=== PATIENT | female | born 1985 | race Caucasian/White ===

== ENCOUNTER 2021-03-27 11:52 | Emergency (ER) | payer MEDICAID ==
[~2021-03-27] VITALS: Ht 162.6 cm; Wt 113.0 kg
[2021-03-27] MEDS ORDERED: DIPHTH,PERTUSS(ACELL),TET TOX 0.5 ML DISP.SYRIN. VAX IM ONE (12:30)
[2021-03-27] MEDS ORDERED: HYDROcodone/APAP 5/325MG 1 TAB TABLET PO ONE (12:30)
--- NOTE | 2021-03-27 12:38 | RAD ---
EXAM: Left foot, 3 views. HISTORY: Fall. Laceration. COMPARISON: None. FINDINGS: 3 views of the left foot are obtained. There is lucency involving the base of the second mi ddle phalanx, possibly projectional or due to a nondisplaced fracture. There is no foreign body. Ther e is a small plantar spur. IMPRESSION: Lucency involving the base of the second middle phalanx, possibly artifactual or a nondis placed fracture. Correlate for pain in this location. Electronically signed by: Jocelin Nava MD (03/27/2021 12:36 PM) [id number]
[2021-03-27] MEDS ORDERED: CEPH500T PO (12:58)
[2021-03-27] MEDS ORDERED: HYDR-2155 PO (12:58)
--- NOTE | 2021-03-27 13:01 | PHYS DOC ---
General Adult EDM: Chief Complaint: FOOT INJURY PAIN HPI: HPI: Patient is a 36-year-old female presents with laceration to left toe. Patient states that she tripped and fell down her stairs. Denies hitting her head or loss of consciousness. Denies any other injuries. Patient ambulated on her own into the emergency room. Denies taking anything for pain prior to arrival. Pain is increased with ambulation. Bleeding is controlled. Unknown tetanus status. Review of Systems: Review of Systems: Constitutional: Denies fever or chills Eyes: Denies change in visual acuity HENT: Denies nasal congestion or sore throat Respiratory: Denies cough or shortness of breath Cardiovascular: Denies chest pain or edema GI: Denies abdominal pain, nausea, vomiting, bloody stools or diarrhea : Denies dysuria Musculoskeletal: Denies back pain or joint pain Integument: Laceration to left toe Neurologic: Denies headache, focal weakness or sensory changes Endocrine: Denies polyuria or polydipsia Lymphatic: Denies swollen glands Psychiatric: Denies depression or anxiety Current Medications: Current Meds: Current Medications Medications (Trade) Dose Ordered Sig/Delgado Start Time Stop Time Status Last Admin Dose Admin Acetaminophen/ Hydrocodone Bitart (Lortab 5/325) 1 tab 1X ONCE 03/27/21 12:30 03/27/21 12:31 DC Diphtheria/ Tetanus/Acell Pertussis (Boostrix) 0.5 ml ONCE ONCE 03/27/21 12:30 03/27/21 12:31 DC Allergies: Allergies: Allergies Coded Allergies Type Severity Reaction Last Updated Verified No Known Drug Allergies 03/27/21 No Physical Exam: PE: Constitutional: Well developed, well nourished, no acute distress, non-toxic appearance. [] HENT: Normocephalic, atraumatic, bilateral external ears normal, oropharynx moist, no oral exudates, nose normal. [] Eyes: PERRLA, EOMI, conjunctiva normal, no discharge. [] Neck: Normal range of motion, no tenderness, supple, no stridor. [] Cardiovascular:Heart rate regular rhythm, no murmur [] Lungs & Thorax: Bilateral breath sounds clear to auscultation [] Abdomen: Bowel sounds normal, soft, no tenderness, no masses, no pulsatile ma sses. [] Skin: 1 inch, laceration to base of the second middle phalanx Back: No tenderness, no CVA tenderness. [] Extremities: No tenderness, no cyanosis, no clubbing, ROM intact, no edema. [] Neurologic: Alert and oriented X 3, normal motor function, normal sensory function, no focal deficits noted. [] Psychologic: Affect normal, judgement normal, mood normal. [] EKG: EKG: [] Radiology/Procedures: Radiology/Procedures: []EXAM: Left foot, 3 views. HISTORY: Fall. Laceration. COMPARISON: None. FINDINGS: 3 views of the left foot are obtained. There is lucency involving the base of the second middle phalanx, possibly projectional or due to a nondisplaced fracture. There is no foreign body. There is a small plantar spur. IMPRESSION: Lucency involving the base of the second middle phalanx, possibly artifactual or a nondisplaced fracture. Correlate for pain in this location. Electronically signed by: Jocelin Nava MD (03/27/2021 12:36 PM) [id number] Heart Score: C/O Chest Pain: No Risk Factors: Risk Factors: DM, Current or recent (<one month) smoker, HTN, HLP, family history of CAD, obesity. Risk Scores: Score 0 - 3: 2.5% MACE over next 6 weeks - Discharge Home Score 4 - 6: 20.3% MACE over next 6 weeks - Admit for Clinical Observation Score 7 - 10: 72.7% MACE over next 6 weeks - Early Invasive Strategies Course & Med Decision Making: Course & Med Decision Making Pertinent Labs and Imaging studies reviewed. (See chart for details) [] 36-year-old female presents after a fall. Patient has laceration to base of the second middle phalanx. Pain treated with hydrocodone in the ER. X-ray of left foot shows nondisplaced phalanx fracture. Wound was irrigated. Laceration was repaired. Toes wrapped in gauze. Patient given postop shoe. Toes were cj taped. Tetanus updated. Patient sent home with Keflex and hydrocodone. Advised patient she could still take ibuprofen for breakthrough pain. Patient needs to follow-up with PCP or return to the ER for suture removal in 10 to 14 days. Discussed signs of infection. Patient verbalized understanding of discharge instructions. Dragon Disclaimer: Kevon Disclaimer: This electronic medical record was generated, in whole or in part, using a voice recognition dictation system. Laceration Repair Lac Repair Indication: Laceration to base of the second middle phalanx and third phalanx Procedure: The patient was placed in the appropriate position and anesthesia around the block was injected.. The area was then irrigated. The laceration was closed with 5-0, 4 sutures. 2 sutures placed to the third phalanx. The wound area was then dressed with gauze. Total repaired wound length: Second middle phalanx1 cm, third phalanxhalf centimeter Other Items: N/A The patient tolerated the procedure well. Complications: N/A Departure Departure: Impression: Primary Impression: Laceration of toe Qualified Codes: S91.119A - Laceration without foreign body of unspecified toe without damage to nail, initial encounter Disposition: HOME / SELF CARE / HOMELESS Condition: STABLE Referrals: EDELMIRA SULLIVAN MD (PCP) Patient Instructions: Laceration Care, Adult, [id number] Additional Instructions: You are seen in the emergency room after a fall. Your foot was x-rayed and identified a nondisplaced toe fracture. You had two lacerations that had to be repaired. Please keep area clean and dry. You will need to have the sutures removed in 10 to 14 days. You can follow back up in the ER return to your PCP for removal. Sent home with prescription for an antibiotic and pain medication. Please take the antibiotic as directed. You can use ibuprofen for breakthrough pain. Please contact your PCP with any concerns or return to the ER. EMERGENCY DEPARTMENT GENERAL DISCHARGE INSTRUCTIONS Thank you for coming to [facility] (ED) today and trusting us with you care. We trust that you had a positivie experience in our Emergency Department. If you wish to speak to the department management, you may call the director at [phone]. YOUR FOLLOW UP INSTRUCTIONS ARE FOLLOWS: 1. Do you have a private Doctor? If you do not have a private doctor, please ask for a resource list of physicians or clinics that may be able to assist you with follow up care. 2. The Emergency Physician has interpreted your x-rays. The X-Ray specialist will also review them. If there is a change in the findings, you will be notified in 48 hours when at all possible. 3. A lab test or culture has been done, your results will be reviewed and you will be notified if you need a change in treatment. ADDITIONAL INSTRUCTIONS AND INFORMATION: 1. Your care today has been supervised by a physician who is specially trained in emergency care. Many problems require more than one evaluation for a complete diagnosis a nd treatment. We recommend that you schedule your follow up appointment as recommended to ensure complete treatment of you illness or injury. If you are unable to obtain follow up care and continue to have a problem, or if your condition worsens, we recommend that you return to the ED. 2. We are not able to safely determine your condition over the phone nor are we able to give sound medical advice over the phone. For these safety reasons, if you call for medical advice we will ask you to come to the ED for further evaluation. 3. If you have any questions regarding these discharge instructions please call the ED at [phone]. SAFETY INFORMATION: In the interest of safety, wellness, and injury prevention; we encourage you to wear your sealbelt, if you smoke; quite smoking, and we encourage family to use a protective helmet for bicycling and other sporting events that present an increased risk for head injury. IF YOUR SYMPTOMS WORSEN OR NEW SYMPTOMS DEVELOP, OR YOU HAVE CONCERNS ABOUT YOUR CONDITION; OR IF YOUR CONDITION WORSENS WHILE YOU ARE WAITING FOR YOUR FOLLOW UP APPOINTMENT; EITHER CONTACT YOUR PRIMARY CARE DOCTOR, THE PHYSICIAN WHOSE NAME AND NUMBER YOU WERE GIVEN, OR RETURN TO THE ED IMMEDIATELY. Scripts Hydrocodone Bit/Acetaminophen (HYDROCODONE-APAP 5-325 ) 1 Each Tablet 1 TAB PO PRN Q6HRS PRN for PAIN for 3 Days, #12 TAB 0 Refills Prov: GIBRAN BROWN APRN 03/27/21 Cephalexin (CEPHALEXIN) 500 Mg Tablet 1 TAB PO BID for laceration for 7 Days, #14 TAB Prov: GIBRAN BROWN APRN 03/27/21 GIBRAN BROWN APRN Mar 27, 2021 13:00
[2021-03-27] MEDS ORDERED: LIDOCAINE 2% 20 ML VIAL. IJ ONE (13:30)
[2021-03-27 14:32] VITALS: BP 178/95
== END 2021-03-27 14:33 | disposition home or self-care (01) ==
LOC: ER 11:52
DX: S91.115A Laceration without foreign body of left lesser toe(s) without damage to nail, initial encounter (principal); W01.0XXA Fall on same level from slipping, tripping and stumbling without subsequent striking against object, initial encounter; Y93.89 Activity, other specified; Y92.89 Other specified places as the place of occurrence of the external cause; Y99.8 Other external cause status
CPT/HCPCS: 12001; 73630; 90471; 90715; 99283; J2001